=== PATIENT | male | born 1975 | race Caucasian/White ===

== ENCOUNTER 2016-11-18 15:50 | Emergency (ER) | payer BC ==
[2016-11-18 16:59] VITALS: BP 123/82
--- NOTE | 2016-11-18 17:34 | UC ---
Skin Complaint HPI - HPI Summary HPI Summary: Had red spot on his back a few days ago, though it was a bug bite but it got painful and swollen so he had his daughter squeeze and pick at the area. She got some clear fluid out, but no pus. Now the spot is larger and more painful with hard scab. Denies fever - History of Current Complaint Chief Complaint: UCSkin Time Seen by Provider: 11/18/16 17:17 Stated Complaint: SPOT ON BACK Hx Obtained From: Patient Onset/Duration: Gradual Onset, Lasting Days Timing: Constant Onset Severity: Mild Current Severity: Moderate Location: Discrete Character: Pain, Redness, Raised Aggravating: Touch Alleviating: Nothing Associated Signs & Symptoms: Positive: Drainage Related History: Trauma, Insect Bite/Sting - Allergy/Home Medications Allergies/Adverse Reactions: Allergies Allergy/AdvReac Type Severity Reaction Status Date / Time No Known Allergies Allergy Verified 11/18/16 16:58 Review of Systems Constitutional: Negative Skin: Other - painful spot Eyes: Negative ENT: Negative Respiratory: Negative Cardiovascular: Negative Gastrointestinal: Negative Genitourinary: Negative Motor: Negative Neurovascular: Negative Musculoskeletal: Negative Neurological: Negative Psychological: Negative All Other Systems Reviewed And Are Negative: Yes PMH/Surg Hx/FS Hx/Imm Hx Previously Healthy: Yes - Surgical History Surgical History: None - Family History Known Family History: Positive: Hypertension - Social History Occupation: Employed Full-time Lives: With Family Alcohol Use: None Substance Use Type: None Smoking Status (MU): Current Every Day Smoker Amount Used/How Often: 1 PPD Length of Time of Smoking/Using Tobacco: 20 YRS Have You Smoked in the Last Year: Yes Household Exposure Type: Cigarettes Physical Exam Triage Information Reviewed: Yes Appearance: Well-Appearing, No Pain Distress, Obese Vital Signs: Initial Vital Signs Temp 98 F 11/18/16 16:51 Pulse 73 11/18/16 16:51 Resp 20 11/18/16 16:51 BP 123/82 11/18/16 16:51 Pulse Ox 98 11/18/16 16:51 Vital Signs Reviewed: Yes Eye Exam: Normal Eyes: Positive: Conjunctiva Clear ENT Exam: Normal ENT: Positive: Normal ENT inspection, Hearing grossly normal, Pharynx normal, TMs normal Dental Exam: Normal Neck exam: Normal Neck: Positive: Supple, Nontender, No Lymphadenopathy Respiratory Exam: Normal Respiratory: Positive: Chest non-tender, Lungs clear, Normal breath sounds, No respiratory distress, No accessory muscle use Cardiovascular Exam: Normal Cardiovascular: Positive: RRR, No Murmur Musculoskeletal Exam: Normal Neurological Exam: Normal Neurological: Positive: Alert Psychological Exam: Normal Skin Exam: Other - 5 cm x 4cm irreg erythematous area with swollen hard scabbed area in the middle, approx 2cm x 2cm. No fluctuance or drainage noted Course/Dx - Diagnoses Provider Diagnoses: cellulitis on back. elevated blood pressure due to discomfort Discharge - Discharge Plan Condition: Stable Disposition: HOME Prescriptions: Sulfamethox/Trimethoprim DS* [Bactrim DS 800/160 TAB*] 1 tab PO BID #10 tab Patient Education Materials: Cellulitis (ED) Referrals: No Primary Care Phys,NOPCP [Primary Care Provider] - Additional Instructions: Do frequent warm soaks to the area with epsom salts or soapy water. DO NOT SQUEEZE OR POKE THE AREA AT ALL. If it becomes very large and tender you should return and we can open it up if needed. As long as the pain, redness, and swelling gradually resolve, you can simply finish your antibiotics and allow it to heal on its own.
== END 2016-11-18 17:39 | disposition home or self-care (01) ==
LOC: UCCORT 15:50
DX: L03.312 Cellulitis of back [any part except buttock and flank] (principal); R03.0 Elevated blood-pressure reading, without diagnosis of hypertension; F17.210 Nicotine dependence, cigarettes, uncomplicated
CPT/HCPCS: 99212; G0463

== ENCOUNTER 2017-02-16 08:06 | Emergency (ER) | payer BC ==
[2017-02-16 08:15] VITALS: BP 149/100
--- NOTE | 2017-03-19 08:55 | UC ---
Joselyn Garcia SooYoung, scribed for Lissette Mcdaniels DO on 02/16/17 at 0829 . Skin Complaint HPI - HPI Summary HPI Summary: A 41 y/o M presents to [facility] [place] with c/o diffuse rash on bilat UE onset approx one week. The rash has spread to the sides of his abd; it is not on his face, genitals, LE. The rash is erythematous, itchy. He has used cortisone cream with successful, but rash is still present and spreading. Denies fever, chills, SOB. Pt states feeling fine otherwise. Pt works outside often among trees, shrubs, greenery. - History of Current Complaint Chief Complaint: UCRash Stated Complaint: RASH Hx Obtained From: Patient Onset/Duration: Gradual Onset, Lasting Days, Still Present Timing: Constant Onset Severity: Moderate Current Severity: Moderate Pain Intensity: 0 Pain Scale Used: 0-10 Numeric Location: Diffuse - UE and abd Character: Pruritus, Redness Associated Signs & Symptoms: Negative: Difficulty Breathing, Fever, Chills - Allergy/Home Medications Allergies/Adverse Reactions: Allergies Allergy/AdvReac Type Severity Reaction Status Date / Time No Known Allergies Allergy Verified 02/16/17 08:11 Review of Systems Constitutional: Negative Skin: Rash - Diffuse. Erythematous and itchy Eyes: Negative ENT: Negative Respiratory: Negative Cardiovascular: Negative Gastrointestinal: Negative Genitourinary: Negative Motor: Negative Neurovascular: Negative Musculoskeletal: Negative Neurological: Negative Psychological: Negative All Other Systems Reviewed And Are Negative: Yes PMH/Surg Hx/FS Hx/Imm Hx Previously Healthy: Yes - denies PMHx Endocrine History: Other Other Endocrine History: neg: DM Respiratory History: Other Other Respiratory History: COPD - Surgical History Surgical History: None - Family History Known Family History: Positive: Hypertension - Social History Occupation: Employed Full-time Lives: With Family Alcohol Use: None Substance Use Type: None Smoking Status (MU): Current Every Day Smoker Amount Used/How Often: 1 PPD Length of Time of Smoking/Using Tobacco: 20 YRS Have You Smoked in the Last Year: Yes Household Exposure Type: Cigarettes Physical Exam Triage Information Reviewed: Yes Appearance: Well-Appearing, No Pain Distress, Well-Nourished Vital Signs: Initial Vital Signs Temp 97.6 F 02/16/17 08:12 Pulse 89 02/16/17 08:12 Resp 16 09/21/17 08:12 BP 149/100 02/16/17 08:12 Pulse Ox 98 02/16/17 08:12 Vital Signs Reviewed: Yes Eyes: Positive: Conjunctiva Clear. Negative: Discharge ENT: Positive: Hearing grossly normal. Negative: Muffled/hoarse voice Neck exam: Normal Neck: Positive: Supple Respiratory: Positive: Lungs clear, Normal breath sounds, No respiratory distress, No accessory muscle use Cardiovascular: Positive: RRR, No Murmur Musculoskeletal Exam: Normal Musculoskeletal: Positive: Strength Intact Neurological: Positive: Alert, Muscle Tone Normal Psychological Exam: Normal Psychological: Positive: Age Appropriate Behavior Skin: Positive: rashes - Excoriated, puritic, weeping macular popular rash on arms, hands, abd Course/Dx - Course Course Of Treatment: High blood pressure noted. Pt medications reviewed. The patient has been encouraged to quit smoking. - Differential Diagnoses - Skin Complaint Differential Diagnoses: Contact Dermatitis, Local Allergic Reaction, Poison Christina , Poison [place], Scabies - Diagnoses Provider Diagnoses: 1. poison christina. 2. Elevated blood pressure without diagnosis of hypertension. Discharge - Discharge Plan Condition: Stable Disposition: HOME Prescriptions: predniSONE TAB* [Deltasone TAB*] 10 mg PO DAILY #42 tab Patient Education Materials: Prednisone (By mouth), Poison Christina (ED), Cold Compress or Soak (ED) Referrals: [facility] [place] [facility] [place]Outside] - 1 Week No Primary Care Phys,NOPCP [Medical Doctor] - Additional Instructions: As we discussed, use Tecnu, an [id number] poison christina wash, if you know you 've come into contact with poison christina. Your blood pressure was elevated at this visit. That does not mean you have hypertension, it is probably due to your current condition. Please follow up with your primary care provider. Return to Urgent Care if you have any new or worsening symptoms. The documentation as recorded by the Joselyn boston SooYoung accurately reflects the service I personally performed and the decisions made by , Lissette Mcdaniels DO.
== END 2017-02-16 09:12 | disposition home or self-care (01) ==
LOC: UCEAST 08:06
DX: L23.7 Allergic contact dermatitis due to plants, except food (principal); R03.0 Elevated blood-pressure reading, without diagnosis of hypertension; J44.9 Chronic obstructive pulmonary disease, unspecified; F17.210 Nicotine dependence, cigarettes, uncomplicated
CPT/HCPCS: 99212; G0463